=== PATIENT | female | born 1935 | race Caucasian/White ===

== ENCOUNTER → 2018-02-11 10:45 | Outpatient (CLI) | payer MEDICARE, SELFPAY ==
--- NOTE | 2018-02-12 13:15 | BRONCHALL ---
Bronchoprovocation Challenge - Bronchoprovocation Challenge Bronchoprovocation Challenge: INTRODUCTION: The patient is an 82-year-old female that presents for a methacholine challenge secondary to a diagnosis of cough. The respiratory therapist reported good patient effort and reproducible results. INTERPRETATION: Initial spirometry did not show any large airways obstructive ventilatory defect and preserved airflows throughout. The patient was then given progressively increasing doses of methacholine in a standardized fashion. At the highest level, the patient's FEV1 had only decreased by 2%, indicating the presence of a negative test. IMPRESSION: Negative methacholine challenge.
== END ==
PROVIDERS: Family Provider Internal Medicine; PCP Internal Medicine; Visit Provider Internal Medicine
DX: R05 Cough (principal)
CPT/HCPCS: 94070; 95070; J3490; J7674

== ENCOUNTER → 2018-05-06 12:44 | Outpatient (CLI) | payer MEDICARE, SELFPAY ==
--- NOTE | 2018-05-06 12:46 | BI_ITS ---
MAMMOGRAPHY - BILATERAL SCREENING REASON FOR EXAM: Female, 82 years old. Routine annual screening examination. PERTINENT HISTORY: Personal history of breast cancer. Sister with breast cancer. Prior left lumpectomy and radiation treatment. TECHNIQUE: Digital bilateral breast flaco (3D mammographic acquisition) in the CC and MLO projections. 2-D mediolateral oblique (MLO) and craniocaudad (CC) views of both breasts were obtained. CAD: Full Field Digital Mammography with Computer Added Detection was performed. COMPARISON: Comparison is made with prior study dated April 25, 2017. FINDINGS: Breast Composition: There are scattered areas of fibroglandular density. There are no dominant masses or suspicious calcifications. The patient is status post left lumpectomy in the upper lateral deep portion of the left breast. This is unchanged. Mild stable breast deformity. No other significant abnormalities are identified. There has been no significant change since the prior study. BI/SCREENING MAMM (CAD), BILAT IMPRESSION: Stable bilateral screening mammogram. Yearly follow-up mammogram recommended. (A) ASSESSMENT CATEGORY: BIRADS Category 2: Benign. A letter regarding these results will be sent to the patient by the facility within 30 days. Approximately 10% of breast cancers are not detected by mammography. A normal mammogram should not delay biopsy of a clinically suspicious abnormality. [id number] Electronically Signed: Aoln Almaraz MD at 15:37 EDT Tel [phone], Service support ,
== END ==
PROVIDERS: Family Provider Internal Medicine; PCP Internal Medicine; Referring Provider Nurse Practitioner Primary Care; Visit Provider Nurse Practitioner Primary Care
DX: Z12.31 Encounter for screening mammogram for malignant neoplasm of breast (principal)
CPT/HCPCS: 77063; 77067

== ENCOUNTER 2018-09-27 12:34 | Observation (INO) | payer MEDICARE, SELFPAY ==
[2018-09-27 12:35] VITALS: BP 166/69; PULSE 75; RESP 14; TEMP 36.5; O2SAT 99; BMI 25.2
--- NOTE | 2018-09-27 12:52 | RAD_ITS ---
STUDY: X-RAY CHEST REASON FOR EXAM: Female, 83 years old. Hypertension, generalized illness for one week TECHNIQUE: AP COMPARISON: 02/06/2017 FINDINGS: Surgical clips project over the left lung base. There are scattered pulmonary granulomata. No airspace consolidation. There is no demonstrated pleural abnormality. Normal size heart. Normal mediastinum and naye. Normal visualized pulmonary arteries. Normal visualized aortic arch and descending thoracic aorta. Normal visualized thoracic spine. Normal visualized ribs, clavicles, and shoulders. There is no demonstrated abnormality of the visualized soft tissue structures of the upper abdomen. RAD/Chest 1 View (Portable) IMPRESSION: Stable, nonacute portable x-ray examination of the chest. Electronically Signed: Jim Traylor MD at 13:15 EDT , Service support ,
--- NOTE | 2018-09-27 12:52 | EKG12_ITS ---
Test Reason : ABDOMINAL PAIN Blood Pressure : / mmHG Vent. Rate : 071 BPM Atrial Rate : 071 BPM P-R Int : 140 ms QRS Dur : 080 ms QT Int : 388 ms P-R-T Axes : 063 004 042 degrees QTc Int : 421 ms Normal sinus rhythm Nonspecific ST abnormality Abnormal ECG Confirmed by NOE TOUSSAINT, NAA ([id number]), editor managing newspaper NANCY HUNTER ([id number]) on 10/01/2018 8:18:46 AM Referred By: Mariangel Melgar Confirmed By:NAA LIU MD
[2018-09-27] MEDS: Aspirin 81 MG TAB.CHEW 162 MG PO (13:34)
[2018-09-27] MEDS: 0.9% Normal Saline 1,000 ML 150 ML IV (13:34)
[2018-09-27 13:48] LABS: Absolute Lymphocyte Count 0.81 X10^3/ul (0.83-4.51); Absolute Neutrophil Count 6.8 X10^3/uL (2.0-7.7); Basophil# 0.02 X10^3/uL; Basophil% 0.2 % (0-1); Eosinophil# 0.04 X10^3/uL; Eosinophils% 0.5 % (0-5); Hematocrit 36.6 % (37-47); Hemoglobin 12.5 g/dl (12.0-15.0); Lymphocyte # 0.81 X10^3/ul (4.0); Lymphocyte % 9.7 % (19-41); Mean Corp Hgb Conc 34.2 g/gl (32-36); Mean Corpuscular Hgb 30.8 pg (27.0-32.0); Mean Corpuscular Volume 90.1 fL (81-99); Mean Platelet Vol. 9.7 fl (6.2-12.0); Monocyte# 0.68 X10^3/uL; Monocyte% 8.2 % (0-10); Neutrophil # 6.78 X10^3/uL (2.7-7.7); Neutrophil % 81.3 % (47-70); Platelet Count 277 K/mm3 (150-450); RBC Distribution Width CV 12.2 % (11.6-14.6); RBC Distribution Width SD 39.8 fl (35.1-43.9); Red Blood Count 4.06 M/mm3 (4.2-5.4); White Blood Count 8.3 K/mm3 (4.4-11.0)
[2018-09-27 13:49] LABS: POSITIVE COUNT NO; POSITIVE DIFFERENTIAL NO; POSITIVE MORPHOLOGY NO
[2018-09-27 14:12] LABS: AST(SGOT) 187 U/L (15-37); Alanine Aminotransfer ALT/SGPT 107 U/L (13-56); Albumin, Serum 3.4 g/dL (3.2-5.0); Alkaline Phosphatase 245 U/L (45-117); Anion Gap 5 (5-15); BUN 10 mg/dL (7-18); BUN/Creat Ratio 12.8 RATIO (10-20); Calcium,Total 8.3 mg/dL (8.5-10.1); Chloride 99 mmol/L (98-107); Creatinine, Serum 0.78 mg/dL (0.55-1.02); EST Glomerular Filtration Rate 75 mL/min (>60); Est Glom Filt Rate - Afr Amer 91 mL/min (>60); Globulin 3.5 g/dL (2.2-4.2); Glucose 151 mg/dL (74-106); Lipase 189 U/L (73-393); Potassium 3.7 mmol/L (3.5-5.1); Protein, Total 6.9 g/dL (6.4-8.2); Sodium Level 134 mmol/L (136-145)
--- NOTE | 2018-09-27 14:57 | CT_ITS ---
STUDY: CT ABDOMEN AND PELVIS WITH CONTRAST REASON FOR EXAM: Female, 83 years old. Abdominal pain and bloating for 2 weeks RADIATION DOSAGE (If Supplied By Facility): CTDIvol = ( 13.33 ) mGy, DLP = ( 778.46 ) mGycm TECHNIQUE: Transaxial images were obtained from the dome of the diaphragm to the symphysis pubis with oral contrast. Isovue 300 100 IV/Oral was administered. Sagittal and coronal images were reconstructed. Individualized dose optimization techniques were used for this CT. COMPARISON: None. FINDINGS: The visualized lung bases are unremarkable. The visualized portions of the heart are within normal limits. Normal liver. The gallbladder is surgically absent. There is left more than right intrahepatic and extrahepatic bile duct dilation with multiple calcific stones throughout the common hepatic and common bile duct. The common duct measures up to 10 mm. Simple cyst of the liver noted. Normal spleen. Normal pancreas. Normal bilateral adrenal glands. Normal right kidney. Normal left kidney. Normal visualized stomach. Normal small intestine. No colon wall thickening. Much of the colon is nondistended. There is non-visualization of the appendix. There is diffuse atherosclerotic calcification of the abdominal aorta, without a demonstrated aneurysm. Normal inferior vena cava. Normal retroperitoneum. Normal urinary bladder. There is atrophy of the uterus. Normal abdominal wall. There are diffuse degenerative changes of the visualized lumbar spine. CT/Abdomen/Pelvis WITH Contrast IMPRESSION: 1. Choledocholithiasis with intrahepatic and extrahepatic bile duct dilation. 2. Cholecystectomy. 3. Hepatic cysts. 4. Additional chronic changes, as above. Electronically Signed: Jim Tarylor MD at 17:17 EDT , Service support ,
[2018-09-27 15:00] LABS: Mucous, Urine 0 SEEN /hpf (<or=2+); Red Blood Cells-Urine 0 SEEN /hpf (0-5); Squamous Epithelial Cells - UA 0 SEEN /hpf (5-10); White Blood Cells 0 SEEN /hpf (0-5)
[2018-09-27 15:09] LABS: Color, Urine Yellow (Yellow); Glucose, Dipstick Normal (Normal); Ketone-Dipstick Negative (Negative); Leukocyte Esterase-Dipstick Negative /ul (Negative); Nitrite-Dipstick Negative (Negative); Occult Blood-Urine Negative /ul (Negative); Protein-Dipstick Negative (Negative); Specific Gravity, Urine 1.015 (1.002-1.030); Urine Bilirubin Dipstick Negative (Negative); Urine Clarity Clear (Clear); Urine Urobilinogen Normal (Normal)
[2018-09-27 15:15] LABS: Bacteria RARE /hpf (None Seen)
[2018-09-27 15:18] VITALS: BP 155/77; PULSE 86; RESP 13; O2SAT 95
[2018-09-27 17:15] VITALS: BP 130/78; PULSE 78; RESP 17; O2SAT 97
--- NOTE | 2018-09-27 17:43 | ED.VISSUMM ---
- ER Visit Summary Date of Service: 09/27/18 Chief Complaint: [Abdominal pain] History of Present Illness: The patient is a 83 F [presents to the emergency department abdominal pain that started around 11 AM. Patient was in a vehicle driving back from lunch which day had eaten about a half an hour prior. Patient developed severe pain in her epigastric region. Patient became sweaty and nauseated but she did not vomit. She denied any chest pain or shortness of breath. Patient had a similar episode September 14. Patient tells me her gallbladder is been removed and she is had an appendectomy. Patient states that she has this happen from time to time when she tries to eat and therefore is been limited in what she can eat. She denies any urinary symptoms. She denies any blood in her stool or black tarry stool.] Physical Examination: [HEENT-PERRLA, EOMI. Cranial nerves II through XII grossly intact. TMs clear. Mucous membranes moist. No adenopathy. Cardiovascular-regular rate and rhythm without murmur or ectopy Lungs-clear to auscultation, chest wall stable without crepitus or subcu emphysema Abdomen-normoactive bowel sounds, soft. Patient has tenderness palpation over the epigastric region with some guarding. Is no rebound, rigidity, or perineal signs. Extremities-intact ?4, normal range of motion, normal pulses, atraumatic] Test Results: [CBC with differential showed a white count of 8.3, hemoglobin 12, hematocrit 36, platelets 277. Chemistries unremarkable. LFTs showed a total bili 1.3, alk phos of 245, ALT of 107, AST 187, lipase 189. Troponin is less than 0.015. Chest x-ray showed nothing acute. CT scan of the abdomen pelvis with IV and p.o. contrast showed choledocholithiasis.] Emergency Department Course and Treatment: [Patient did not require any pain medication while in the department. Case was discussed with surgeon on-call Dr. Melgar.] Patient will be admitted to the hospital under care of . Treatment Plan: [Admit for ERCP] Disposition: [Admit] Impression: [Choledocholithiasis Abdominal pain] This note was generated with [employer] dictation software. It may contain incorrect words, spelling, and punctuation that were not noted in review of the chart prior to signing ED Disposition - Plan for ED Patient: Referrals: Vira Bates MD [Primary Care Provider] -
--- NOTE | 2018-09-27 18:53 | HP.PCM_ITS ---
History of Present Illness Date of Admission: 09/27/18 The patient is a 83 year old F presents the ER due to lower chest/upper abdomen pain which started after breakfast today. Patient reports pain is as well as some sweating and also fulfilling and nausea denies vomiting. Patient did have a workup in the ER cardiac which was negative patient had elevated LFTs and CT abdomen pelvis did show choledocholithiasis with a dilated common bile duct and multiple gallstones. Patient underwent robotic cholecystectomy [place] [address] Lomas. Patient currently denies any pain and states that she feels better. Patient did have another episode on 09/14 where she had pain nausea and vomiting at night and did not really feel like eating on Mondays and then on Saturday she went to the urgent care which she had a UA done which a question whether she could have had UTIs she was placed on Macrobid for 7 days. Patient states the pain was better since then until today. Patient states she had a bowel movement today which was soft and brown occasionally has issues with constipation. 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5 mg PO 4X/DAY PRN PRN 07/26/17 Multivitamin [Multiple Vitamins] 1 ea PO DAILY 02/06/17 Potassium Chloride [K-Tab ER] 8 meq PO BID 02/06/17 Pantoprazole Sodium [Protonix] 40 mg PO DAILY #30 tab 02/07/17 Simvastatin 20 mg PO DAILY 09/27/18 Surgical History: Surgical History (Last Updated 05/20/18 @ 14:48 by Linda Pablo [employer]-C) H/O oophorectomy History of cholecystectomy Z90.49 S/P lumpectomy, left breast Z98.890 radiation also Surgical History: cholecystectomy - Robotic by Dr. 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 Benitez Psychiatric History: No pertinent psych hx [employer] History: No pertinent [employer] history Lives: Spouse/ Significant Other Smoking Status: Never smoker - *Family History Paternal History Items: Heart Disease - Had angina Review of Systems Constitutional: Denies: Fever Eyes: Denies: Blurred vision HEENT: Denies: Difficulty Swallowing Cardiovascular: Reports: Chest Pain - none currently Respiratory: Denies: Shortness of breath at rest Gastrointestinal: Reports: Abdominal Pain, Nausea. Denies: Vomiting Skin: Denies: Jaundice Neurological: Denies: Double vision Psychiatric: Denies: Anxiety, Depression Hematologic/ Lymphatic: Denies: Easy Bleeding VTE Information - Inpt Only VTE Present on Admission: Yes VTE Mechan Device Prophylaxis: SCD's VTE Pharm Prophylaxis ordered?: No Reason prophylaxis not ordered:: Medical Contraindication - ERCP tomorrow - Physical Exam General: Alert, Oriented x3, Cooperative, No apparent distress HEENT: Atraumatic Lungs: Normal air movement Cardiovascular: Regular rate Abdomen: Soft, Non Tender, Non-Distended Extremities: No clubbing, No cyanosis, No edema Skin: No rashes Neurological: Cranial nerves II-XII grossly intact Psych/Mental Status: Normal Affect Vital Signs Temp Pulse Resp BP Pulse Ox 97.7 F L 78 17 130/78 H 97 09/27/18 12:35 09/27/18 17:15 09/27/18 17:15 09/27/18 17:15 09/27/18 17:15 Oxygen Delivery Method Room Air Weight: 142 lb 10.225 oz Body Mass Index (BMI) 25.2 Laboratory Tests Past 24 Hrs 09/27/18 09/27/18 09/27/18 13:30 13:30 14:30 WBC 8.3 RBC 4.06 L Hgb 12.5 Hct 36.6 L MCV 90.1 MCH 30.8 MCHC 34.2 RDW 12.2 RDW Differential 39.8 Plt Count 277 MPV 9.7 Immature Gran % (Auto) 0.100 Neut % (Auto) 81.3 H Lymph % (Auto) 9.7 L [place] % (Auto) 8.2 Eos % (Auto) 0.5 Baso % (Auto) 0.2 Absolute Neuts (auto) 6.8 Absolute Lymphs (auto) 0.81 L Total Counted Not Reportable Sodium 134 L Potassium 3.7 Chloride 99 Carbon Dioxide 30.0 Anion Gap 5 BUN 10 Creatinine 0.78 Estim Creat Clear Calc 36.50 Est GFR (MDRD) Af Amer 91 Est GFR (MDRD) Non-Af 75 BUN/Creatinine Ratio 12.8 Glucose 151 H Calcium 8.3 L Total Bilirubin 1.30 H AST 187 H ALT 107 H Alkaline Phosphatase 245 H Troponin I < 0.015 Total Protein 6.9 Albumin 3.4 Globulin 3.5 Albumin/Globulin Ratio 1.0 Lipase 189 Urine Color Yellow Urine Clarity Clear Urine pH 8.0 Ur Specific [place] 1.015 Urine Protein Negative Urine Glucose (UA) Normal Urine Ketones Negative Urine Occult Blood Negative Urine Nitrite Negative Urine Bilirubin Negative Urine Urobilinogen Normal Ur Leukocyte Esterase Negative Urine RBC 0 SEEN Urine WBC 0 SEEN Ur Squamous Epith Cells 0 SEEN Urine Bacteria RARE Urine Mucus 0 SEEN Assessment/Plan All Active Problems (Last Updated 05/20/18 @ 14:48 by Linda Pablo, [employer]-C) Chest pain (Acute) 83-year-old female with choledocholithiasis 1. Okay for clears tonjt will make n.p.o. after midnight for an ERCP with Dr. Strong at 8 AM tomorrow. Did briefly review the procedure with the patient and Dr. Strong will also discussed with the patient and in the morning. 2. Zosyn IV 3. Protonix IV 4. We will recheck labs in the a.m. Mariangel Melgar M.D. Pager: [phone] [facility] [address] [place] [address] [facility], [address] [place] [address] Office: [phone] Code Visit Inpatient E&M: [id number] Init Hosp L2
[2018-09-27 18:58] VITALS: BMI 24.4
[2018-09-27 19:30] VITALS: BP 139/69; PULSE 79; RESP 16; TEMP 36.6; O2SAT 99
[2018-09-27] MEDS: Lactated Ringers 1,000 ML 100 ML IV (20:17)
[2018-09-27] MEDS: 0.9% NaCl Peripheral Flush Adult/Peds IV (22:32)
[2018-09-27] MEDS: Piperacil/Tazobactam 3.375 GM/50 ML ML IV (22:32)
[2018-09-27] MEDS: Atorvastatin Calcium 10 MG Tablet PO (22:33)
[2018-09-27 22:45] VITALS: BP 138/61; PULSE 74; RESP 16; TEMP 36.8; O2SAT 98
[2018-09-28] VITALS (7 sets, daily range): BP systolic 96–143; BP diastolic 58–82; PULSE 66–112; RESP 16–96; TEMP 36.2–36.8; O2SAT 95–99; BMI 24.4
[2018-09-28] MEDS: Levothyroxine 50 MCG Tablet PO (05:46)
[2018-09-28] MEDS: Piperacil/Tazobactam 3.375 GM/50 ML ML IV (05:46)
--- NOTE | 2018-09-28 06:52 | NURSING ---
Report called to Aria in Endo.
[2018-09-28 07:07] LABS: Absolute Lymphocyte Count 1.37 X10^3/ul (0.83-4.51); Absolute Neutrophil Count 5.5 X10^3/uL (2.0-7.7); Basophil# 0.02 X10^3/uL; Basophil% 0.3 % (0-1); Eosinophil# 0.09 X10^3/uL; Eosinophils% 1.2 % (0-5); Hematocrit 36.5 % (37-47); Hemoglobin 12.4 g/dl (12.0-15.0); Lymphocyte # 1.37 X10^3/ul (4.0); Lymphocyte % 17.8 % (19-41); Mean Corpuscular Hgb 30.5 pg (27.0-32.0); Mean Corpuscular Volume 89.7 fL (81-99); Mean Platelet Vol. 10.1 fl (6.2-12.0); Monocyte# 0.74 X10^3/uL; Monocyte% 9.6 % (0-10); Neutrophil # 5.48 X10^3/uL (2.7-7.7); Platelet Count 254 K/mm3 (150-450); RBC Distribution Width CV 11.9 % (11.6-14.6); RBC Distribution Width SD 38.4 fl (35.1-43.9); Red Blood Count 4.07 M/mm3 (4.2-5.4); White Blood Count 7.7 K/mm3 (4.4-11.0)
[2018-09-28 07:08] LABS: POSITIVE COUNT NO; POSITIVE DIFFERENTIAL NO; POSITIVE MORPHOLOGY NO
[2018-09-28 07:47] LABS: AST(SGOT) 329 U/L (15-37); Alanine Aminotransfer ALT/SGPT 305 U/L (13-56); Alkaline Phosphatase 280 U/L (45-117); Anion Gap 9 (5-15); BUN 6 mg/dL (7-18); BUN/Creat Ratio 9.3 RATIO (10-20); Bilirubin, Direct 1.74 mg/dL (0.00-0.30); Chloride 109 mmol/L (98-107); Creatinine, Serum 0.65 mg/dL (0.55-1.02); EST Glomerular Filtration Rate 93 mL/min (>60); Est Glom Filt Rate - Afr Amer 113 mL/min (>60); Globulin 3.5 g/dL (2.2-4.2); Glucose 109 mg/dL (74-106); Protein, Total 6.5 g/dL (6.4-8.2); Sodium Level 138 mmol/L (136-145)
--- NOTE | 2018-09-28 07:49 | PN.SURG_ITS ---
Subjective: No changes overnight - Physical Exam General: Alert, Oriented x3 HEENT: Atraumatic Neck: No JVD Lungs: Normal air movement Cardiovascular: Regular rate, Regular Rhythm Abdomen: Soft, Non-Distended, Tender Vital Signs Temp Pulse Resp BP Pulse Ox 97.6 F L 75 16 138/70 H 96 09/28/18 05:50 09/28/18 05:50 09/28/18 05:50 09/28/18 05:50 09/28/18 05:50 Oxygen Delivery Method Room Air Weight: 140 lb 1 oz Body Mass Index (BMI) 24.4 Intake and Output for Last 24 Hours 09/26/18 09/27/18 09/28/18 23:59 23:59 23:59 Intake Total 1104 / 1104 Output Total 500 / 500 Balance 604 / 604 Laboratory Tests Past 24 Hrs 09/27/18 09/27/18 09/27/18 13:30 13:30 14:30 WBC 8.3 RBC 4.06 L Hgb 12.5 Hct 36.6 L MCV 90.1 MCH 30.8 MCHC 34.2 RDW 12.2 RDW Differential 39.8 Plt Count 277 MPV 9.7 Immature Gran % (Auto) 0.100 Neut % (Auto) 81.3 H Lymph % (Auto) 9.7 L [place] % (Auto) 8.2 Eos % (Auto) 0.5 Baso % (Auto) 0.2 Absolute Neuts (auto) 6.8 Absolute Lymphs (auto) 0.81 L Total Counted Not Reportable Sodium 134 L Potassium 3.7 Chloride 99 Carbon Dioxide 30.0 Anion Gap 5 BUN 10 Creatinine 0.78 Estim Creat Clear Calc 36.50 Est GFR (MDRD) Af Amer 91 Est GFR (MDRD) Non-Af 75 BUN/Creatinine Ratio 12.8 Glucose 151 H Calcium 8.3 L Total Bilirubin 1.30 H Direct Bilirubin AST 187 H ALT 107 H Alkaline Phosphatase 245 H Troponin I < 0.015 Total Protein 6.9 Albumin 3.4 Globulin 3.5 Albumin/Globulin Ratio 1.0 Lipase 189 Urine Color Yellow Urine Clarity Clear Urine pH 8.0 Ur Specific [place] 1.015 Urine Protein Negative Urine Glucose (UA) Normal Urine Ketones Negative Urine Occult Blood Negative Urine Nitrite Negative Urine Bilirubin Negative Urine Urobilinogen Normal Ur Leukocyte Esterase Negative Urine RBC 0 SEEN Urine WBC 0 SEEN Ur Squamous Epith Cells 0 SEEN Urine Bacteria RARE Urine Mucus 0 SEEN 09/28/18 09/28/18 06:39 06:39 WBC 7.7 RBC 4.07 L Hgb 12.4 Hct 36.5 L MCV 89.7 MCH 30.5 MCHC 34.0 RDW 11.9 RDW Differential 38.4 Plt Count 254 MPV 10.1 Immature Gran % (Auto) 0.100 Neut % (Auto) 71.0 H Lymph % (Auto) 17.8 L [place] % (Auto) 9.6 Eos % (Auto) 1.2 Baso % (Auto) 0.3 Absolute Neuts (auto) 5.5 Absolute Lymphs (auto) 1.37 Total Counted Not Reportable Sodium 138 Potassium 4.0 Chloride 109 H Carbon Dioxide 20.0 L Anion Gap 9 BUN 6 L Creatinine 0.65 Estim Creat Clear Calc 36.50 Est GFR (MDRD) Af Amer 113 Est GFR (MDRD) Non-Af 93 BUN/Creatinine Ratio 9.3 L Glucose 109 H Calcium 8.0 L Total Bilirubin 2.70 H Direct Bilirubin 1.74 H AST 329 H ALT 305 H Alkaline Phosphatase 280 H Troponin I Total Protein 6.5 Albumin 3.0 L Globulin 3.5 Albumin/Globulin Ratio Lipase Urine Color Urine Clarity Urine pH Ur Specific [place] Urine Protein Urine Glucose (UA) Urine Ketones Urine Occult Blood Urine Nitrite Urine Bilirubin Urine Urobilinogen Ur Leukocyte Esterase Urine RBC Urine WBC Ur Squamous Epith Cells Urine Bacteria Urine Mucus Medical Necessity - Tobacco Use Smoking Status: Never smoker Assessment/Plan All Active Problems (Last Updated 05/20/18 @ 14:48 by Linda Pablo, CASANDRA-C) Chest pain (Acute) 83-year-old female with choledocholithiasis 1. The patient was admitted and started on antibiotics. CT shows multiple stones in the common bile duct as well as common bile duct dilation and her liver enzymes are elevated. I discussed ERCP with the patient in detail. I explained the risks including but not limited to bleeding, infection, perforation of the bile duct or bowel, pancreatitis. The patient was also warned of the risk of having to place a stent. Patient agrees to proceed. All questions were answered. Marko Strong MD Pager: [facility] [address] [place] [address], [address] [place] [phone] Office:
--- NOTE | 2018-09-28 08:00 | RAD_ITS ---
PROCEDURE: FLUOROSCOPIC GUIDANCE FOR ERCP DATE OF EXAMINATION: 09/28/2018 INDICATION: Female, 83 years old. Dose area product: 95.7 mGycm2 TECHNIQUE: Fluoroscopy was provided for ERCP procedure. Several digital spot images were obtained. Initial images demonstrate introduction of a guidewire into the common bile duct in a retrograde fashion with subsequent injection of contrast. Contrast is seen to opacify the common bile duct, as well as the intrahepatic biliary radicals. There is dilation of intrahepatic and extrahepatic bile ducts as seen on CT from yesterday. There are multiple filling defects identified on initial image correlating to choledocholithiasis evident on CT. The fifth image has no diagnostic information. RAD/ERCP Biliary Only IMPRESSION: Fluoroscopic guidance during ERCP. Choledocholithiasis. Biliary dilation. Electronically Signed: Jim Traylor MD at 9:51 EDT , Service support ,
--- NOTE | 2018-09-28 08:49 | PCM.PN.BLA ---
Progress Note ERCP was performed. Patient had several very large stones measuring over 1 cm. These were unable to be removed as they were calcified and very hard and very large. 10 [place] 7 cm stent was placed. Patient will need to be referred as an outpatient for common duct exploration versus repeat ERCP at a tertiary center. There is good flow of bile the end of the case.
--- NOTE | 2018-09-28 08:53 | DCINST_ITS ---
You will use the following diet at home:: Regular Your food should be the consistency of: Regular Discharge Activity: No Restrictions Call your doctor if you observe: Fever of 101 or Higher, Uncontrolled pain Allergies/Adverse Reactions: Allergies No Known Allergies Allergy (Verified 09/27/18 12:35) Medications to take at Discharge Aspirin [Aspirin, Baby] 81 mg PO DAILY@0800 02/06/17 Diclofenac Sodium [Pennsaid] 2 gm TP DAILY PRN PRN 02/06/17 Ergocalciferol [Vitamin D] 5 unit PO QWEEK 02/06/17 Indapamide 1.25 mg PO DAILY 02/06/17 Levothyroxine [Synthroid] 50 mcg PO DAILY 02/06/17 Meclizine HCl [Antivert] 12.5 mg PO 4X/DAY PRN PRN 02/06/17 Multivitamin [Multiple Vitamins] 1 ea PO DAILY 02/06/17 Potassium Chloride [K-Tab ER] 8 meq PO BID 02/06/17 Pantoprazole Sodium [Protonix] 40 mg PO DAILY #30 tab 02/07/17 Calcium Carbonate/Vitamin D3 [Calcium 250-D Tablet] 1 each PO DAILY 09/27/18 Simvastatin 20 mg PO QHS 09/27/18 Primary Care Physician: Vira Bates MD [Primary Care Provider] - Test Results: Test results from this visit will be discussed in further detail at your follow- up appointment, if applicable. [facility] When: [phone], Call for appt saturday, Ligia will fax info to his office
--- NOTE | 2018-09-28 09:01 | OP.ENDO_ITS ---
09/28/2018 Vira Bates [address] [phone] Re : ERCP procedure for Lisa Grover Dear Dr. Bates This procedure was performed on Friday, September 28, 2018. My impressions and recommendations are as follows: Impressions : - The major papilla was on the rim of a diverticulum. - The major papilla appeared normal. - The entire main bile duct was dilated, with a stone causing an obstruction. - Choledocholithiasis was found. Partial removal was accomplished with biliary sphincterotomy; a stent was inserted. - A biliary sphincterotomy was performed. - The biliary tree was swept. - The biliary tree was swept. - One plastic stent was placed into the common bile duct. Recommendations : - Discharge patient to home. - Resume previous diet. - Refer to a surgeon at appointment to be scheduled. - Patient will likely need common bile duct exploration with removal of stones at a tertiary care center. My findings are described in the full procedure note, which is enclosed. If I can be of further assistance, please feel free to contact me at Doctor phone number(s): , Work: . Sincerely, Marko Strong MD 09/28/2018 9:00:35 AM This report has been signed electronically.
[2018-09-28] MEDS: Indapamide 2.5 MG Tablet 1.25 MG PO (10:14)
== END 2018-09-28 15:10 | disposition home or self-care (01) ==
LOC: ED 13:29 → MS3 19:03
PROVIDERS: Surgery; Admitting Provider Surgery; Emergency Provider Emergency Medicine; Family Provider Internal Medicine; PCP Internal Medicine; Referring Provider Surgery; Visit Provider Surgery
PROC: (CPT 43260; principal; 2018-09-28 08:00)
DX: K80.50 Calculus of bile duct without cholangitis or cholecystitis without obstruction (principal); E03.9 Hypothyroidism, unspecified; I10 Essential (primary) hypertension; K21.9 Gastro-esophageal reflux disease without esophagitis; E55.9 Vitamin D deficiency, unspecified; Z79.899 Other long term (current) drug therapy; Z79.82 Long term (current) use of aspirin; Z85.3 Personal history of malignant neoplasm of breast; Z85.828 Personal history of other malignant neoplasm of skin
CPT/HCPCS: 43264; 43274; 71045; 74177; 74328; 76000; 80048; 80053; 80076; 81001; 83690; 84484; 85025; 93005; 96361; 96365; 96366; 96367; 99218; 99283; J7030; J7120; Q9967; A4216; G0378; J2405

== ENCOUNTER 2018-11-20 21:19 | Emergency (ER) | payer MEDICARE, SELFPAY ==
[2018-11-20 21:19] VITALS: BMI 25.2
[2018-11-20 21:21] VITALS: BP 132/68; PULSE 87; RESP 18; TEMP 36.9; O2SAT 93; BMI 23.5
[2018-11-20 22:02] LABS: Absolute Lymphocyte Count 0.57 X10^3/ul (0.83-4.51); Absolute Neutrophil Count 13.8 X10^3/uL (2.0-7.7); Basophil# 0.01 X10^3/uL; Basophil% 0.1 % (0-1); Eosinophil# 0.06 X10^3/uL; Eosinophils% 0.4 % (0-5); Hematocrit 38.6 % (37-47); Hemoglobin 13.6 g/dl (12.0-15.0); Lymphocyte # 0.57 X10^3/ul (4.0); Lymphocyte % 3.7 % (19-41); Mean Corp Hgb Conc 35.2 g/gl (32-36); Mean Corpuscular Hgb 30.5 pg (27.0-32.0); Mean Corpuscular Volume 86.5 fL (81-99); Mean Platelet Vol. 10.2 fl (6.2-12.0); Monocyte# 1.01 X10^3/uL; Monocyte% 6.5 % (0-10); Neutrophil # 13.79 X10^3/uL (2.7-7.7); Neutrophil % 89.2 % (47-70); Platelet Count 226 K/mm3 (150-450); RBC Distribution Width CV 12.1 % (11.6-14.6); RBC Distribution Width SD 38.7 fl (35.1-43.9); Red Blood Count 4.46 M/mm3 (4.2-5.4); White Blood Count 15.5 K/mm3 (4.4-11.0)
[2018-11-20] MEDS: Ondansetron 4 MG/2 ML Vial IV (22:02)
[2018-11-20] MEDS: 0.9% Normal Saline 1,000 ML 125 ML IV (22:02)
[2018-11-20 22:05] LABS: Differential Indicated SCAN CRITERIA MET; POSITIVE COUNT NO; POSITIVE DIFFERENTIAL YES; POSITIVE MORPHOLOGY YES
[2018-11-20 22:10] LABS: Bacteria 0 SEEN /hpf (None Seen); Mucous, Urine 0 SEEN /hpf (<or=2+); Red Blood Cells-Urine 0 SEEN /hpf (0-5); Squamous Epithelial Cells - UA 0 SEEN /hpf (5-10); White Blood Cells 0 SEEN /hpf (0-5)
[2018-11-20 22:12] LABS: ALB/GLOB Ratio 1.2 RATIO (0.9-2.4); AST(SGOT) 22 U/L (15-37); Alanine Aminotransfer ALT/SGPT 24 U/L (13-56); Albumin, Serum 3.8 g/dL (3.2-5.0); Alkaline Phosphatase 84 U/L (45-117); Anion Gap 7 (5-15); BUN 10 mg/dL (7-18); BUN/Creat Ratio 14.8 RATIO (10-20); Calcium,Total 8.7 mg/dL (8.5-10.1); Chloride 99 mmol/L (98-107); Creatinine, Serum 0.68 mg/dL (0.55-1.02); EST Glomerular Filtration Rate 89 mL/min (>60); Est Glom Filt Rate - Afr Amer 108 mL/min (>60); Globulin 3.3 g/dL (2.2-4.2); Glucose 138 mg/dL (74-106); Lipase 105 U/L (73-393); Potassium 3.4 mmol/L (3.5-5.1); Protein, Total 7.1 g/dL (6.4-8.2); Sodium Level 134 mmol/L (136-145)
[2018-11-20 22:12] LABS: Color, Urine Yellow (Yellow); Glucose, Dipstick Normal (Normal); Ketone-Dipstick 50 mg/dl (Negative); Leukocyte Esterase-Dipstick Negative /ul (Negative); Nitrite-Dipstick Negative (Negative); Occult Blood-Urine Negative /ul (Negative); Protein-Dipstick Negative (Negative); Urine Bilirubin Dipstick Negative (Negative); Urine Clarity Clear (Clear); Urine Urobilinogen Normal (Normal)
[2018-11-20 22:20] VITALS: BP 130/74; PULSE 85; RESP 14; O2SAT 95
[2018-11-20 22:23] LABS: Platelet Estimate ADEQUATE (ADEQ); Red Cell Morphology NORM C+C NORMAL (NORM C&C)
--- NOTE | 2018-11-20 22:23 | ED.VISSUMM ---
- ER Visit Summary Date of Service: 11/20/18 Chief Complaint: [Vomiting and diarrhea] History of Present Illness: The patient is a 83 F [presents the emergency department with complaint of vomiting and started around 5 PM. Patient threw up about 3 times and she had one watery stool. Patient denies any abdominal pain. She denies fever. She denies sick contacts. Patient has a remote history of choledocholithiasis and had an ERCP September [address] Strong whom they called adams and they were asked to come in and get evaluated get some blood work. Patient is scheduled to follow-up with a at home independent call center agent to have some sort of a laser procedure to remove the ductal stones. Patient denies any difficulty eating or drinking.] Physical Examination: [HEENT-PERRLA, EOMI. Cranial nerves II through XII grossly intact. TMs clear. Mucous membranes moist. No adenopathy. Cardiovascular-regular rate and rhythm without murmur or ectopy Lungs-clear to auscultation, chest wall stable without crepitus or subcu emphysema Abdomen-normoactive bowel sounds, soft, nontender, no rebound or rigidity, no peritoneal signs. Extremities-intact ?4, normal range of motion, normal pulses, atraumatic] Test Results: [CBC with differential obtained showed an elevated white count of 15.5, hemoglobin 13.6, hematocrit 39, platelets 226. Chemistries showed a sodium 134, potassium 3.4, chloride 99, CO2 28, glucose 138, BUN 10, creatinine 0.68. LFTs were normal. Lipase was 105. Urinalysis was unremarkable.] Emergency Department Course and Treatment: [Patient received normal saline and was given Zofran 4 mill grams IV. She had no further vomiting. She had no further diarrhea.] Treatment Plan: [Patient case was discussed with Dr. Strong. Patient will be discharged home with a prescription for Zofran. Etiology of her symptoms is unclear but suspect may be related to viral gastroenteritis. Suspect her white blood cell count elevation likely stress response.] Disposition: [Discharged home in stable condition. Patient advised to return if persistent vomiting, diarrhea, nominal pain, fever, or conditions worsen anyway.] Impression: [Vomiting and diarrhea-suspect viral gastroenteritis] This note was generated with [employer] dictation software. It may contain incorrect words, spelling, and punctuation that were not noted in review of the chart prior to signing ED Disposition - Plan for ED Patient: Referrals: Vira Bates MD [Primary Care Provider] -
--- NOTE | 2018-11-20 22:26 | ED.DCSUM_ITS ---
- ER Visit Summary Date of Service: 11/20/18 Chief Complaint: [Vomiting and diarrhea] History of Present Illness: The patient is a 83 F [presents the emergency department with complaint of vomiting and started around 5 PM. Patient threw up about 3 times and she had one watery stool. Patient denies any abdominal pain. She denies fever. She denies sick contacts. Patient has a remote history of choledocholithiasis and had an ERCP September [address] Strong whom they called adams and they were asked to come in and get evaluated get some blood work. Patient is scheduled to follow-up with a escalator attendant to have some sort of a laser procedure to remove the ductal stones. Patient denies any difficulty eating or drinking.] Physical Examination: [HEENT-PERRLA, EOMI. Cranial nerves II through XII grossly intact. TMs clear. Mucous membranes moist. No adenopathy. Cardiovascular-regular rate and rhythm without murmur or ectopy Lungs-clear to auscultation, chest wall stable without crepitus or subcu emphysema Abdomen-normoactive bowel sounds, soft, nontender, no rebound or rigidity, no peritoneal signs. Extremities-intact ?4, normal range of motion, normal pulses, atraumatic] Test Results: [CBC with differential obtained showed an elevated white count of 15.5, hemoglobin 13.6, hematocrit 39, platelets 226. Chemistries showed a sodium 134, potassium 3.4, chloride 99, CO2 28, glucose 138, BUN 10, creatinine 0.68. LFTs were normal. Lipase was 105. Urinalysis was unremarkable.] Emergency Department Course and Treatment: [Patient received normal saline and was given Zofran 4 mill grams IV. She had no further vomiting. She had no further diarrhea.] Treatment Plan: [Patient case was discussed with Dr. Strong. Patient will be discharged home with a prescription for Zofran. Etiology of her symptoms is unclear but suspect may be related to viral gastroenteritis. Suspect her white blood cell count elevation likely stress response.] Disposition: [Discharged home in stable condition. Patient advised to return if persistent vomiting, diarrhea, nominal pain, fever, or conditions worsen anyway.] Impression: [Vomiting and diarrhea-suspect viral gastroenteritis] This note was generated with [employer] dictation software. It may contain incorrect words, spelling, and punctuation that were not noted in review of the chart prior to signing ED Disposition - Plan for ED Patient: Referrals: Vira Bates MD [Primary Care Provider] -
--- NOTE | 2018-11-20 22:26 | ED.DEP ---
ED Disposition - Plan for ED Patient: Instructions: ED Gastroenteritis Viral Prescriptions: Ondansetron [Zofran Odt] 4 mg PO Q8H PRN PRN #10 tab PRN Reason: Nausea Referrals: Vira Bates MD [Primary Care Provider] - 3-5 Days
--- NOTE | 2018-11-20 23:51 | ED.DEP ---
ED Disposition - Plan for ED Patient: Instructions: ED Gastroenteritis Viral Prescriptions: Ondansetron [Zofran Odt] 4 mg PO Q8H PRN PRN #10 tab PRN Reason: Nausea Ondansetron [Zofran Odt] 4 mg PO Q8H PRN PRN #10 tab PRN Reason: Nausea Referrals: Vira Bates MD [Primary Care Provider] - 3-5 Days
[2018-11-20 23:56] VITALS: BP 118/48; PULSE 71; RESP 18; O2SAT 96
== END 2018-11-21 | disposition home or self-care (01) ==
LOC: ED 21:52
PROVIDERS: Emergency Provider Emergency Medicine; Family Provider Internal Medicine; PCP Internal Medicine
DX: A08.4 Viral intestinal infection, unspecified (principal); I10 Essential (primary) hypertension; E78.00 Pure hypercholesterolemia, unspecified; Z87.19 Personal history of other diseases of the digestive system; Z90.49 Acquired absence of other specified parts of digestive tract; Z79.82 Long term (current) use of aspirin; Z79.899 Other long term (current) drug therapy
CPT/HCPCS: 80053; 81001; 83690; 85025; 96361; 96374; 99283; J7030; A4216; J2405

== ENCOUNTER → 2019-05-26 08:32 | Outpatient (CLI) | payer MEDICARE, SELFPAY ==
--- NOTE | 2019-05-26 08:34 | BI_ITS ---
MAMMOGRAPHY - BILATERAL SCREENING REASON FOR EXAM: Female, 84 years old. Routine annual screening examination. PERTINENT HISTORY: Personal history of breast cancer. Prior left lumpectomy with radiation. Sister with breast cancer. TECHNIQUE: Digital bilateral breast chris (3D mammographic acquisition) in the CC and MLO projections. 2-D mediolateral oblique (MLO) and craniocaudad (CC) views of both breasts were obtained. CAD: Full Field Digital Mammography with Computer Added Detection was performed. COMPARISON: Comparison is made with prior examination dated May 06, 2018 and April 25, 2017. FINDINGS: Breast Composition: There are scattered areas of fibroglandular density. There are no dominant masses or suspicious calcifications. The patient is status post lumpectomy in the deep upper slightly lateral aspect of the left breast. Postsurgical scarring is seen. This is unchanged. No other significant abnormalities are identified. There has been no significant change since the prior study. BI/SCREEN MAMM (CAD) W/CHRIS BILAT IMPRESSION: Stable bilateral screening mammogram. Yearly follow-up mammogram recommended. (A) ASSESSMENT CATEGORY: BIRADS Category 2: Benign. A letter regarding these results will be sent to the patient by the facility within 30 days. Approximately 10% of breast cancers are not detected by mammography. A normal mammogram should not delay biopsy of a clinically suspicious abnormality. [id number] Electronically Signed: Alon Almaraz, at 9:51 EST , Service support ,
== END ==
PROVIDERS: Family Provider Internal Medicine; PCP Internal Medicine; Referring Provider Nurse Practitioner Women's Health; Visit Provider Nurse Practitioner Women's Health
DX: Z12.31 Encounter for screening mammogram for malignant neoplasm of breast (principal)
CPT/HCPCS: 77063; 77067

== ENCOUNTER 2020-08-12 16:19 | Outpatient (RCR) | payer MEDICARE, SELFPAY ==
[2019-06-02 09:00] VITALS: BMI 23.5
== END 2020-08-12 23:59 ==
LOC: IMMUN 16:19
PROVIDERS: PCP Internal Medicine; Visit Provider Family Medicine
DX: Z23 Encounter for immunization (principal)
CPT/HCPCS: 0011A; 0012A; 91301

== ENCOUNTER → 2024-05-05 | Outpatient (CLI) | payer MEDICARE, SELFPAY ==
--- NOTE | 2024-05-05 14:41 | RAD_ITS ---
STUDY: X-RAY - ABDOMEN/PELVIS REASON FOR EXAM: Female, 88 years old. ABDOMINAL PAIN TECHNIQUE: AP supine and upright views of the abdomen and pelvis. COMPARISON: None. FINDINGS: Normal visualized lung bases. There is an unremarkable bowel gas pattern. There is no demonstrated free abdominal air. The visualized liver, spleen and kidneys are grossly normal in size and morphology. Normal soft tissue structures. Normal visualized osseous structures. RAD/Abd Inc Decub and/or Erect IMPRESSION: Normal x-ray examination of the abdomen and pelvis. Electronically Signed: Veto Velasquez MD at 11:32 EDT ,
== END | disposition home or self-care (01) ==
PROVIDERS: PCP Internal Medicine; Referring Provider Internal Medicine Gastroenterology; Visit Provider Internal Medicine Gastroenterology
DX: R10.9 Unspecified abdominal pain (principal)
CPT/HCPCS: 74019

== ENCOUNTER 2025-04-26 07:24 | Emergency (ER) | payer MEDICARE, SELFPAY ==
[2025-04-26 07:26] VITALS: BP 183/81; PULSE 59; RESP 16; TEMP 36.6; O2SAT 99; BMI 21.0
--- NOTE | 2025-04-26 08:00 | CT_ITS ---
PROCEDURE: ABDOMEN/PELVIS W IV CONT ONLY 04/26/2025 REASON FOR EXAM: ABD PAIN Chronic constipation. Nausea and vomiting. History of breast cancer. TECHNIQUE: Procedure Code: [id number] Modality: CT Procedure: ABDOMEN/PELVIS W IV CONT ONLY Coronal and Sagittal reconstruction series were provided. CONTRAST: Isovue-300 VOLUME: 90 mL One or more dose reduction techniques were used (e.g., Automated exposure control, adjustment of the mA and/or kV according to patient size, use of iterative reconstruction technique. RADIATION DOSE SUMMARY: CTDlvol: 12.8 mGy DLP: 437.07 mGycm COMPARISON: None FINDINGS: Lung bases: Lung bases are clear. Liver: There is evidence of pneumobilia more prominent in the left biliary tree. This is in keeping with history of prior cholecystectomy. Gallbladder: Surgically absent. Spleen: Normal size. Pancreas: Diffuse fatty atrophy. Adrenals: Unremarkable Kidneys: Normal renal sizes. No hydronephrosis. Bladder: Bladder is unremarkable. Reproductive Organs: Prior hysterectomy. Bowel: Colonic diverticulosis without diverticulitis. Appendix: The appendix is not identified. There is no inflammatory process identified in the right lower quadrant to suggest appendicitis. Lymph nodes: Unremarkable. Vasculature: Mild diffuse atherosclerotic calcifications are noted. Peritoneum / Retroperitoneum: Unremarkable Bones: Mild degenerative changes. CT/Abdomen/Pelvis W IV Cont ONLY IMPRESSION: Status post cholecystectomy. Pneumobilia in the left biliary tree in keeping w ith prior cholecystectomy. Findings suggestive of a 1.3 cm cyst in the inferior medial aspect of the right lobe of the liver. Reading Location: [place] [id number]
--- NOTE | 2025-04-26 08:01 | EDS_ITS ---
HPI HPI - GI History of Present Illness Chief Complaint: Abd Pain Narrative Narrative: Patient is a 89-year-old female presenting to the emergency department for abdominal discomfort, nausea and weight loss. Patient states that since June when she followed up with her GI doctor she has had issues with all of the above. States that they thought she had GERD and prescribed her medication for this. States that on Saturday she was having issues with constipation and took Colace and then had a bowel movement Saturday and yesterday. States yesterday she felt hungry and tried to eat and then got nauseous and vomited. Denies fever or chills. Denies chest pain or shortness of breath. Denies any abdominal pain at time of evaluation. Denies dysuria or hematuria. Did not take anything for nausea or vomiting prior to arrival. States it has been a while since she has had a EGD or colonoscopy done. States that she thinks she has lost a couple pounds in the past month without trying just from the nausea and vomiting. States however since June she feels like she is lost a significant amount of weight. [facility] Medical History Hemorrhoids Arthritis History of back problems Ductal carcinoma of left breast Bilateral retinal detachment Bilateral cataracts Skin cancer of chest, excluding breast GERD (gastroesophageal reflux disease) History of low potassium Vitamin D deficiency Hypertension Hypothyroid Home Medications ?Medication ?Instructions ?Recorded ?Last Taken ?Type aspirin 81 mg chewable tablet 81 mg PO DAILY@0800 01/1309/24/18 08:00 History 81 mg diclofenac sodium 2 % topical 2 gm TP DAILY PRN PRN Pa in 02/06/17 Unknown History solution in packet ergocalciferol (vitamin D2) 1,250 5 unit PO QWEEK 01/1309/22/18 08:00 History mcg (50,000 unit) capsule 5 units indapamide 1.25 mg tablet 1.25 mg PO DAILY bp 02/06/17 09/26/18 08:00 History 1.25mg levothyroxine 50 mcg tablet 50 mcg PO DAILY 02/06/17 U nknown History meclizine 12.5 mg tablet 12.5 mg PO 4X/DAY PRN PRN sy ncope 02/06/17 Unknown History multivitamin 1 ea PO DAILY supplement 09/26/18 08:00 History 1 tab potassium chloride 8 mEq 8 meq PO BID 02/06/17 08:00 History tablet,extended release 8 Meq pantoprazole 40 mg tablet,delayed 40 mg PO DAILY #30 t abs 02/07/17 09/27/18 08:00 Rx release 40 mg calcium 250 mg (as 1 ea PO DAILY 09/27/1809/26 08:00 History carbonate)-vitamin D3 3.125 mcg 1 tab (125 unit) tablet simvastatin 20 mg tablet 20 mg PO QHS 09/27/18 Unknow n History ondansetron 4 mg disintegrating 4 mg PO Q8H PRN PRN Na usea #10 tabs 11/20/18 Unknown Rx tablet ondansetron 4 mg disintegrating 4 mg PO Q8H PRN PRN Na usea #10 tabs 11/20/18 Unknown Rx tablet Hydrocortisone 2.5% / Lidocaine 5% #30 grams 06/02/19 Unknown Rx ointment (cmpd) (Hydrocortisone 2.5%/lidocaine 5% ointment (compound)) Allergy/AdvReac Type Severity Reaction Status Date / Time No Known Allergies Allergy Verified 04/26/25 07:28 Surgical History S/P lumpectomy, left breast History of cholecystectomy H/O oophorectomy Social History Smoking Status: Never smoker alcohol intake: never substance use type: does not use ROS ROS ED ROS Narrative See HPI EXAM Physical Exam Narrative Exam Narrative: Vital signs: Reviewed General: Alert and oriented x 3. No acute distress HEENT: Head is normocephalic and atraumatic, sinuses nontender, pupils equal round and reactive. Nares are patent. Oropharynx and throat exams normal. Neck: Supple without lymphadenopathy nontender Cardiovascular: Regular rate and rhythm, no murmurs. No rubs or gallops. Normal S1 and S2 Respiratory: Clear to auscultation bilaterally. No wheezes, rales, rhonchi Abdominal: Soft and nontender in all quadrants. Normal bowel sounds. No guarding or rebound. Nonsurgical abdomen Extremities: No tenderness. No bruising. Normal range of motion. Normal sensation. Skin: No rash or redness. Neurological: Cranial nerves II through XII are grossly intact. Normal strength and sensation. Normal cerebellar function The rest of the physical exam is unremarkable Const Vital Signs: 04/26/25 07:26 Temperature 97.8 F Temperature Source Oral Pulse Rate 59 L Respiratory Rate 16 Blood Pressure 183/81 H Blood Pressure Mean 115 Pulse Ox 99 Oxygen Delivery Method Room Air MDM MDM MDM Narrative Medical decision making narrative: Patient is a 89-year-old female presenting to the emergency department for abdominal discomfort, nausea and weight loss. Patient was seen and examined. Vitals are stable. Patient resting bed comfortably no acute distress. Patient given Reglan for nausea control. Discharge Plan Triage Chief Complaint: Abd Pain ED Provider: Jeni De La Rosa Dx/Rx/DC Orders Prescriptions: No Action (DME) Hydrocortisone 2.5%/lidocaine 5% ointment (compound) Ointment See Rx Instructions .ROUTE .MEDSUPPLY Qty: 30 2RF Rx Instructions: As directed-Apply per rectum BID multivitamin 1 EACH tablet 1 ea PO DAILY meclizine 12.5 MG tablet 12.5 mg PO 4X/DAY PRN PRN (Reason: syncope) potassium chloride 8 MEQ tablet extended release 8 meq PO BID levothyroxine 50 MCG tablet 50 mcg PO DAILY indapamide 1.25 MG tablet 1.25 mg PO DAILY aspirin 81 MG tablet,chewable 81 mg PO DAILY@0800 ergocalciferol (vitamin D2) 50,000 UNIT capsule 5 unit PO QWEEK Patient Comments: every 2 weeks diclofenac sodium 2 GM solution in packet 2 gm TP DAILY PRN PRN (Reason: Pain) pantoprazole 40 MG tablet 40 mg PO DAILY Qty: 30 1RF simvastatin 20 MG tablet 20 mg PO QHS Rx Instructions: Takes only 3 times a week. calcium carbonate-vitamin D3 1 EACH tablet 1 ea PO DAILY ondansetron 4 MG tablet 4 mg PO Q8H PRN PRN (Reason: Nausea) Qty: 10 0RF ondansetron 4 MG tablet 4 mg PO Q8H PRN PRN (Reason: Nausea) Qty: 10 0RF Primary Care Provider: Vira Bates Referrals: Vira Bates MD [Primary Care Provider, Internal Medicine] Print Language: Scottish
--- NOTE | 2025-04-26 08:01 | ED.VIS.GI ---
HPI HPI - GI History of Present Illness Chief Complaint: Abd Pain Narrative Narrative: Patient is a 89-year-old female presenting to the emergency department for abdominal discomfort, nausea and weight loss. Patient states that since June when she followed up with her GI doctor she has had issues with all of the above. States that they thought she had GERD and prescribed her medication for this. States that on Saturday she was having issues with constipation and took Colace and then had a bowel movement Saturday and yesterday. States yesterday she felt hungry and tried to eat and then got nauseous and vomited. Denies fever or chills. Denies chest pain or shortness of breath. Denies any abdominal pain at time of evaluation. Denies dysuria or hematuria. Did not take anything for nausea or vomiting prior to arrival. States it has been a while since she has had a EGD or colonoscopy done. States that she thinks she has lost a couple pounds in the past month without trying just from the nausea and vomiting. States however since June she feels like she is lost a significant amount of weight. [facility] Medical History (Updated 04/26/25 @ 09:[address] Jeni De La Rosa MD) Hemorrhoids Arthritis History of back problems Ductal carcinoma of left breast Bilateral retinal detachment Bilateral cataracts Skin cancer of chest, excluding breast GERD (gastroesophageal reflux disease) History of low potassium Vitamin D deficiency Hypertension Hypothyroid Home Medications ?Medication ?Instructions ?Recorded ?Last Taken ?Type diclofenac sodium 2 % topical 2 g topical DAILY PRN Pain 02/06/17 Unknown History solution in packet ergocalciferol (vitamin D2) 1,250 5 unit PO QWEEK SUPPLEMENT 02/06/17 04/19/25 History mcg (50,000 unit) capsule Hydrocortisone 2.5% / Lidocaine 5% #30 grams 06/02/19 Unknown Rx ointment (cmpd) (Hydrocortisone 2.5%/lidocaine 5% ointment (compound)) acetaminophen 500 mg capsule 500 mg PO Q6H PRN fever or pain 04/26/25 04/25/25 History calcium 500 mg (as 1 tab PO DAILY SUPPLEMENT 04/26/25 Unknown History carbonate)-vitamin D3 10 mcg (400 unit) tablet (Calcium 500 With D) cyanocobalamin (vitamin B-12) 1,000 mcg PO DAILY SUPPLEMENT 04/26/25 04/25/25 History 1,000 mcg capsule docusate sodium 100 mg capsule 100 mg PO BID PRN PRN constipation 04/26/25 Unknown History levothyroxine 25 mcg tablet 25 mcg PO MOTUWETHFR THYROID 04/26/25 04/23/25 History levothyroxine 25 mcg tablet 50 mcg PO SUSA THYROID 04/26/25 04/25/25 History (Synthroid) losartan 25 mg tablet 25 mg PO DAILY HTN 04/26/25 04/25/25 History lubiprostone 8 mcg capsule 8 mcg PO BID IBS 04/26/25 04/25/25 History metoclopramide HCl 5 mg tablet 5 mg PO Q8H PRN nausea and 04/26/25 Unknown Rx (Reglan) vomiting #20 tabs rabeprazole 20 mg tablet,delayed 20 mg PO DAILY GERD 04/26/25 04/25/25 History release Allergy/AdvReac Type Severity Reaction Status Date / Time No Known Allergies Allergy Verified 04/26/25 07:28 Surgical History S/P lumpectomy, left breast History of cholecystectomy H/O oophorectomy Social History Smoking Status: Never smoker alcohol intake: never substance use type: does not use ROS ROS ED ROS Narrative See HPI EXAM Physical Exam Narrative Exam Narrative: Vital signs: Reviewed General: Alert and oriented x 3. No acute distress HEENT: Head is normocephalic and atraumatic, sinuses nontender, pupils equal round and reactive. Nares are patent. Oropharynx and throat exams normal. Neck: Supple without lymphadenopathy nontender Cardiovascular: Regular rate and rhythm, no murmurs. No rubs or gallops. Normal S1 and S2 Respiratory: Clear to auscultation bilaterally. No wheezes, rales, rhonchi Abdominal: Soft and nontender in all quadrants. Normal bowel sounds. No guarding or rebound. Nonsurgical abdomen Extremities: No tenderness. No bruising. Normal range of motion. Normal sensation. Skin: No rash or redness. Neurological: Cranial nerves II through XII are grossly intact. Normal strength and sensation. Normal cerebellar function The rest of the physical exam is unremarkable Const Vital Signs: 04/26/25 07:26 04/26/25 09:52 Temperature 97.8 F 97.8 F Temperature Source Oral Pulse Rate 59 L 80 Respiratory Rate 16 18 Blood Pressure 183/81 H 120/62 Blood Pressure Mean 115 81 Pulse Ox 99 98 Oxygen Delivery Method Room Air MDM MDM MDM Narrative Medical decision making narrative: Patient is a 89-year-old female presenting to the emergency department for abdominal discomfort, nausea and weight loss. Patient was seen and examined. Vitals are stable. Patient resting bed comfortably no acute distress. Patient given Reglan for nausea control. I anticipate that the patient's symptoms are likely due to either acid reflux or gastroparesis and I explained that it would be unlikely that we would find a cause here for her symptoms given she has had them for multiple months however given her age and weight loss I did offer CT to evaluate for any obstructing mass or acute intra-abdominal pathology. She is agreeable. Labs were also obtained given her symptoms. CBC with leukopenia that has been present prior at 4.1 and a normal hemoglobin. CMP with no significant abnormalities. Lipase within normal limits. Urinalysis with no evidence of urinary tract infection. CT shows status post cholecystectomy. Pneumobilia in the left biliary tree in keeping with prior cholecystectomy. Findings suggestive of a 1.3 cm cyst in the inferior medial aspect of the right lobe of the liver. She was updated on the negative workup and notified of the incidental finding of a cyst in her liver that can be monitored outpatient. Encouraged follow-up with her GI doctor as soon as possible to determine if she needs an EGD or further workup to rule out gastroparesis. She was prescribed antiemetics for home as well. Patient discharged from the Emergency Department. I do not feel that the patient's evaluation reveals any acute reason for admission at this time. I instructed them to either follow-up with their primary care physician or promptly return to the Emergency Department for reevaluation should symptoms worsen or new symptoms develop. I explained what symptoms would indicate the need to return to the emergency department. Shared decision making was used. The patient voiced understanding of the treatment plan and is agreeable with it. Clinical impression Nausea Abdominal discomfort Recent weight loss History & Record Review Discussion w/independent historian: Patient and Family Additional record(s) reviewed:: Prior labs Lab Data Attestation: I reviewed the patient's lab results. Labs: Laboratory Results - last 24 hr 04/26/25 04/26/25 07:50 08:53 WBC 4.1 L RBC 4.31 Hgb 13.5 Hct 39.6 MCV 91.9 MCH 31.3 MCHC 34.1 RDW Std Deviation 40.4 RDW Coeff of Kimberly 11.9 Plt Count 169 MPV 10.8 Immature Gran % (Auto) 0.200 Neut % (Auto) 53.9 Lymph % (Auto) 28.0 [place] % (Auto) 13.2 H Eos % (Auto) 3.7 Baso % (Auto) 1.0 Absolute Neuts (auto) 2.2 Absolute Lymphs (auto) 1.15 Nucleated RBC % 0 Sodium 137 Potassium 4.4 Chloride 102 Carbon Dioxide 26.2 Anion Gap 8 BUN 7 Creatinine 0.69 L Estim Creat Clear Calc 40.98 L Est GFR (MDRD) Non-Af 84 BUN/Creatinine Ratio 9.7 L Glucose 112 H Calcium 8.9 Total Bilirubin 0.60 AST 23 ALT 14 Alkaline Phosphatase 67 Total Protein 6.8 Albumin 4.1 Globulin 2.7 Albumin/Globulin Ratio 1.5 Lipase 25 Urine Color Yellow Urine Clarity Clear Urine pH 7.0 Ur Specific [place] 1.010 Urine Protein Negative Urine Glucose (UA) Normal Urine Ketones Negative Urine Occult Blood Negative Urine Nitrite Negative Urine Bilirubin Negative Urine Urobilinogen Normal Ur Leukocyte Esterase Negative Urine RBC 0 SEEN Urine WBC 0 SEEN Ur Squamous Epith Cells 0 SEEN Urine Bacteria 0 SEEN Urine Mucus 0 SEEN Radiography Diagnostic Testing: Clinical Impression(s) from Imaging Studies Abdomen/Pelvis CT 04/26/25 08:00 IMPRESSION: Status post cholecystectomy. Pneumobilia in the left biliary tree in keeping with prior cholecystectomy. Findings suggestive of a 1.3 cm cyst in the inferior medial aspect of the right lobe of the liver. Reading Location: [facility]- Discharge Plan Triage Chief Complaint: Abd Pain ED Provider: Jeni De La Rosa Dx/Rx/DC Orders Clinical Impression: Abdominal discomfort, Nausea, Recent weight loss Instructions: Abdominal Pain, ED Vomiting (Adult) Prescriptions: New metoclopramide HCl [Reglan] 5 mg tablet 5 mg PO Q8H PRN (Reason: nausea and vomiting) Qty: 20 0RF No Action (DME) Hydrocortisone 2.5%/lidocaine 5% ointment (compound) Ointment See Rx Instructions .ROUTE .MEDSUPPLY Qty: 30 2RF Rx Instructions: As directed-Apply per rectum BID ergocalciferol (vitamin D2) 50,000 UNIT capsule 5 unit PO QWEEK diclofenac sodium 2 GM solution in packet 2 g topical DAILY PRN (Reason: Pain) rabeprazole 20 mg tablet,delayed release (DR/EC) 20 mg PO DAILY levothyroxine 25 mcg tablet 25 mcg PO MOTUWETHFR losartan 25 mg tablet 25 mg PO DAILY docusate sodium 100 mg capsule 100 mg PO BID PRN PRN (Reason: constipation) lubiprostone 8 mcg capsule 8 mcg PO BID calcium carbonate-vitamin D3 [Calcium 500 With D] 500 mg-10 mcg (400 unit) tablet 1 tab PO DAILY levothyroxine [Synthroid] 25 mcg tablet 50 mcg PO SUSA cyanocobalamin (vitamin B-12) 1,000 mcg capsule 1,000 mcg PO DAILY acetaminophen 500 mg capsule 500 mg PO Q6H PRN (Reason: fever or pain) Primary Care Provider: Vira Bates Referrals: Vira Bates MD [Primary Care Provider, Internal Medicine] Friend,DO Reynaldo [Med Staff - Active Staff, Gastroenterology] - As soon as possible Babar Benitez MD [Non-Staff, Gastroenterology] - As soon as possible Activity Restrictions/Additional Instructions: You can take the nausea medication every 8 hours for nausea and vomiting. Try to follow-up with your leather belt maker that I provided you with his contact information as requested below. I also provided you with a different leather belt maker if you cannot contact yours to follow-up with. Your workup here was unremarkable. Your CT showed the findings below that were discussed with you. Findings suggestive of a 1.3 cm cyst in the inferior medial aspect of the right lobe of the liver. Your evaluation in the Emergency Department did not reveal any acute reason for admission. However, I want to emphasize that you may be early in the course of a disease process or illness even if it is not present. For this reason you should follow-up within 24 hours for reevaluation with either your primary care physician or if necessary back here in the Emergency Department. You should return to the Emergency Department immediately if your symptoms worsen or new symptoms develop. Print Language: Polish Disposition Disposition: Home, Self Care Discharge Date/Time: 04/26/25 09:50
[2025-04-26 08:16] LABS: Hematocrit 39.6 % (37-47); Hemoglobin 13.5 g/dL (12.0-15.0); Immature Granulocytes Count 0.010 X10^3/uL (0.0-0.0); Mean Corp Hgb Conc 34.1 g/dL (32-36); Mean Corpuscular Volume 91.9 fL (81-99); Mean Platelet Vol. 10.8 fl (6.2-12.0); NRBC Flagged by Analyzer 0 % (0-5); Platelet Count 169 K/mm3 (150-450); RBC Distribution Width CV 11.9 % (11.6-14.6); RBC Distribution Width SD 40.4 fl (35.1-43.9); Red Blood Count 4.31 M/mm3 (4.2-5.4); White Blood Count 4.1 K/mm3 (4.4-11.0)
[2025-04-26 09:04] LABS: Mucous, Urine 0 SEEN /hpf (<or=2+); Red Blood Cells-Urine 0 SEEN /hpf (0-5); Squamous Epithelial Cells - UA 0 SEEN /hpf (5-10)
[2025-04-26 09:15] LABS: Color, Urine Yellow (Yellow); Glucose, Dipstick Normal (Normal); Ketone-Dipstick Negative (Negative); Leukocyte Esterase-Dipstick Negative /ul (Negative); Nitrite-Dipstick Negative (Negative); Occult Blood-Urine Negative /ul (Negative); Protein-Dipstick Negative (Negative); Specific Gravity, Urine 1.010 (1.002-1.030); Urine Bilirubin Dipstick Negative (Negative)
[2025-04-26 09:26] LABS: AST(SGOT) 23 U/L (<=31); Alanine Aminotransfer ALT/SGPT 14 U/L (<=34); Albumin, Serum 4.1 g/dL (3.4-4.8); Alkaline Phosphatase 67 U/L (35-104); Anion Gap 8 (5-15); BUN 7 mg/dL (4-19); BUN/Creat Ratio 9.7 RATIO (10-20); Calcium,Total 8.9 mg/dL (7.6-11.0); Carbon Dioxide 26.2 mmol/L (21.0-32.0); Chloride 102 mmol/L (98-108); Estimated Creatinine Clearance 40.98 ml/min (50-250); Globulin 2.7 g/dL (2.2-4.2); Glucose 112 mg/dL (70-99); Lipase 25 U/L (13-75); Potassium 4.4 mmol/L (3.3-5.1)
[2025-04-26 09:52] VITALS: BP 120/62; PULSE 80; RESP 18; TEMP 36.6; O2SAT 98
== END 2025-04-26 09:50 | disposition home or self-care (01) ==
PROVIDERS: Emergency Provider Student in an Organized Health Care Education/Training Program; PCP Internal Medicine; Visit Provider Student in an Organized Health Care Education/Training Program
DX: R10.9 Unspecified abdominal pain (principal); R11.2 Nausea with vomiting, unspecified; I10 Essential (primary) hypertension; Z85.828 Personal history of other malignant neoplasm of skin; E03.9 Hypothyroidism, unspecified; Z79.890 Hormone replacement therapy; Z79.899 Other long term (current) drug therapy; K21.9 Gastro-esophageal reflux disease without esophagitis; Z90.49 Acquired absence of other specified parts of digestive tract; R63.4 Abnormal weight loss
CPT/HCPCS: 74177; 80053; 81001; 83690; 85025; 96374; 99283; Q9967; A4216